=== PATIENT | female | born 1950 | race American Indian/Alaskan Native ===

== ENCOUNTER 2017-02-24 22:12 | Emergency (ER) | payer MEDICARE ==
[2017-02-24 22:32] VITALS: BP 177/81
--- NOTE | 2017-02-24 23:09 | Emergency Department Report ---
ED Neck Pain/Injury HPI - General Chief Complaint: Earache Stated Complaint: EAR PAIN,LF SHOULDER PAIN Time Seen by Provider: 02/24/17 22:52 Mode of arrival: Ambulatory Limitations: No Limitations - History of Present Illness Initial Comments: This is a 66-year-old female nontoxic, well nourished in appearance, no acute signs of distress that presents to the ED complaining of left-sided neck pain radiating to the left shoulder 2 weeks. Patient denies any trauma to region. Denies stiff neck. Denies headache, chest pain, shortness of breath, nausea, vomiting, fever, chills, numbness or tingling. Patient stated she has allergies to aspirin. Patient stated symptoms subsided with taking Tylenol 3 and patient is requesting for a filled prescription. MD Complaint: neck pain -: Gradual, week(s) (2) Radiation: left shoulder Severity: mild Severity scale (0 -10): 7 Quality: aching Consistency: constant Improves With: medication OTC/prescribe (Tylenol 3) Worsens With: none Associated Symptoms: none. denies: headache, fever, numbness, tingling, weakness, vertigo, difficulty walking, swollen glands, difficulty swallowing, nausea, vomiting Treatments Prior to Arrival: none - Related Data Previous Rx's Medication Instructions Recorded Last Taken Type Ibuprofen [Motrin 800 MG tab] 800 mg PO Q8HR PRN #30 tablet 11/20/15 Unknown Rx Ketoconazole 2% [Nizoral] 15 gm TP Q12H #1 tube 11/20/15 Unknown Rx Acetaminophen [Tylenol Arthritis] 650 mg PO Q6H #30 tablet.er 02/24/17 Unknown Rx Cyclobenzaprine [Flexeril] 10 mg PO TID PRN #15 tablet 02/24/17 Unknown Rx Allergies Allergy/AdvReac Type Severity Reaction Status Date / Time aspirin Allergy Rash Verified 11/19/15 21:16 ED Review of Systems ROS: Stated complaint: EAR PAIN,LF SHOULDER PAIN Other details as noted in HPI Constitutional: denies: chills, fever Eyes: denies: eye pain, eye discharge, vision change ENT: denies: ear pain, throat pain Respiratory: denies: cough, shortness of breath, wheezing Cardiovascular: denies: chest pain, palpitations Endocrine: no symptoms reported Gastrointestinal: denies: abdominal pain, nausea, diarrhea Genitourinary: denies: urgency, dysuria, discharge Musculoskeletal: denies: back pain, joint swelling, arthralgia Skin: denies: rash, lesions Neurological: denies: headache, weakness, paresthesias Psychiatric: denies: anxiety, depression Hematological/Lymphatic: denies: easy bleeding, easy bruising ED Past Medical Hx - Past Medical History Previous Medical History?: Yes Hx Hypertension: Yes Hx Diabetes: Yes Hx Arthritis: Yes - Surgical History Past Surgical History?: Yes Additional Surgical History: right rotator cuff,left knee tear,rectal sphinster repair - Social History Smoking Status: Never Smoker Substance Use Type: None - Medications Home Medications: Home Medications Medication Instructions Recorded Confirmed Last Taken Type Ibuprofen [Motrin 800 MG tab] 800 mg PO Q8HR PRN #30 tablet 11/20/15 Unknown Rx Ketoconazole 2% [Nizoral] 15 gm TP Q12H #1 tube 11/20/15 Unknown Rx Acetaminophen [Tylenol Arthritis] 650 mg PO Q6H #30 tablet.er 02/24/17 Unknown Rx Cyclobenzaprine [Flexeril] 10 mg PO TID PRN #15 tablet 02/24/17 Unknown Rx ED Physical Exam - General Limitations: No Limitations General appearance: alert, in no apparent distress - Head Head exam: Present: atraumatic, normocephalic, normal inspection - Eye Eye exam: Present: normal appearance, PERRL, EOMI. Absent: scleral icterus, conjunctival injection, nystagmus, periorbital swelling, periorbital tenderness Pupils: Present: normal accommodation - ENT ENT exam: Present: normal exam, normal orophraynx, mucous membranes moist, TM's normal bilaterally, normal external ear exam - Expanded ENT Exam Expanded Ear exam: Present: normal external inspection Mouth exam: Present: normal external inspection, tongue normal. Absent: drooling, trismus, muffled voice, tongue elevation, laceration Teeth exam: Present: normal inspection Throat exam: Positive: normal inspection. Negative: tonsillar erythema, tonsillomegaly, tonsillar exudate, R peritonsillar mass, L peritonsillar mass - Neck Neck exam: Present: normal inspection, full ROM. Absent: tenderness, meningismus, lymphadenopathy, thyromegaly - Respiratory Respiratory exam: Present: normal lung sounds bilaterally. Absent: respiratory distress, wheezes, rales, rhonchi, stridor, chest wall tenderness, accessory muscle use, decreased breath sounds, prolonged expiratory - Cardiovascular Cardiovascular Exam: Present: regular rate, normal rhythm. Absent: systolic murmur, diastolic murmur, rubs, gallop - GI/Abdominal GI/Abdominal exam: Present: soft, normal bowel sounds - Rectal Rectal exam: Present: deferred - Extremities Exam Extremities exam: Present: normal inspection, full ROM, normal capillary refill. Absent: tenderness, pedal edema, joint swelling, calf tenderness - Expanded Upper Extremity Exam Right General: Present: normal inspection Shoulder Exam: Present: normal inspection, full ROM. Absent: tenderness, swelling, abrasion, laceration, ecchymosis, deformity, crepidus, dislocation, erythema, tenderness over AC joint Neuro motor exam: Present: wrist extension intact, thumb opposition intact, thumb IP flexion intact, thumb adduction intact, fingers 2-5 abduction intact Neurosensory exam: Present: 2-point discrimination, radial nerve intact, ulnar nerve intact, median nerve intact Vascular: Present: vascular compromise, normal capillary refill, radial pulse, brachial pulse, ulnar pulse - Back Exam Back exam: Present: normal inspection, full ROM, paraspinal tenderness ( cervical region). Absent: tenderness, CVA tenderness (R), CVA tenderness (L), muscle spasm, vertebral tenderness, rash noted - Neurological Exam Neurological exam: Present: alert, oriented X3, CN II-XII intact, normal gait, reflexes normal - Psychiatric Psychiatric exam: Present: normal affect, normal mood - Skin Skin exam: Present: warm, dry, intact, normal color. Absent: rash ED Course Vital Signs 02/24/17 22:25 Temperature 98.5 F Pulse Rate 67 Respiratory 18 Rate Blood Pressure 177/81 O2 Sat by Pulse 96 Oximetry - Reevaluation(s) Reevaluation #1: 02/24/17 23:06 Patient is speaking full sentences with no signs of distress noted ED Medical Decision Making - Medical Decision Making 66-year-old female that presents with cervical radiculopathy vs. muscle spasm. Patient be treated with Flexeril and acetaminophen at discharge. Patient was instructed not to operate any machinery while taking Flexeril due to sedation/ drowsiness. [place] prescription drug monitoring program was ran by myself. I notify the patient that I will not be able to fill Tylenol 3 due to last medication prescription for tramadol for 30 days has been provided to the patient on 02/09/2017 followed by Tylenol No. 3 for 20 days on 01/13/2017. Patient is monitored by a pain management doctor and I instructed the patient to follow up with pain management doctor for pain management. At time time of discharge, the patient does not seem toxic or ill in appearance. No acute signs of distress noted. Patient agrees to discharge treatment plan of care. No further questions noted by the patient. Critical care attestation.: If time is entered above; I have spent that time in minutes in the direct care of this critically ill patient, excluding procedure time. ED Disposition Clinical Impression: Cervical radiculopathy, Muscle spasm Disposition: - TO HOME OR SELFCARE Is pt being admited?: No Does the pt Need Aspirin: No Condition: Stable Instructions: Acetaminophen (By mouth), Cyclobenzaprine (By mouth), Cervical Radiculopathy (ED), Muscle Spasm (ED) Additional Instructions: Follow-up with your primary-care doctor/pain management doctor in 3-5 days or if symptoms worsen or continue return to emergency room as soon as possible. Take Flexeril and acetaminophen as prescribed. Do not operate any machinery while taking Flexeril due to sedation/drowsiness. Prescriptions: Acetaminophen [Tylenol Arthritis] 650 mg PO Q6H #30 tablet.er Cyclobenzaprine [Flexeril] 10 mg PO TID PRN #15 tablet PRN Reason: Muscle Spasm Referrals: PRIMARY CAREMD [Primary Care Provider] - 3-5 Days ABY [place] MD [Staff Physician] - 3-5 Days [facility] [Outside] - 3-[address] [facility] [Outside] - 3-5 Days Forms: Work/School Release Form(ED)
== END 2017-02-24 23:56 | disposition home or self-care (01) ==
LOC: ED 22:12
DX: M54.12 Radiculopathy, cervical region (principal); M62.838 Other muscle spasm; E11.9 Type 2 diabetes mellitus without complications; M19.90 Unspecified osteoarthritis, unspecified site; I10 Essential (primary) hypertension; Z79.82 Long term (current) use of aspirin
CPT/HCPCS: 99282